=== PATIENT | female | born 1985 | race Caucasian/White ===

== ENCOUNTER 2017-02-21 10:51 | Emergency (ER) | payer MEDICAID ==
[~2017-02-21 10:51] MED LIST: CHLO.12%30 SSP; IBUP-232 PO; PENI250T59 PO
[2017-02-21 10:53] VITALS: BP 147/80; PULSE 100; RESP 15; TEMP 98.8; O2SAT 100
--- NOTE | 2017-02-21 12:28 | PD ---
HPI Chief Complaint abdominal pain Date Seen: Feb 21, 2017 Travel History International Travel<30 Days: No Contact w/Intl Traveler<30Days: No Known Affected Area: No History of Present Illness HPI 31 up @ 24w0d, care with Dr. Felder. Uncomplicated per patient. No records available at this time. Patient presents with c/o sharp lower abdominal pain this morning. +FM, no VB, UC or, LOF or abnormal discharge. She had intercourse last evening. No spotting or concerns post-coital. She reports pain is similar to a UTI she had earlier in the . The pain is sharp and constant. She did eat a doughnut this morning for breakfast. She denies vomiting, or diarrhea. No other associated symptoms. History Past Medical History Narrative Medical Kidney stone Obstetric History Obstetric History x 3 Past Surgical History Narrative Surgical Renal stent Social History Alcohol Use: No Tobacco Use: No Substance Abuse: No Allergies-Medications (Allergen,Severity, Reaction): Coded Allergies: No Known Allergies (Verified , 06/23/15) Home Meds Active Scripts Ibuprofen (Motrin) 600 Mg Tab, 600 MG PO Q6 Y for PAIN, #20 TAB Prov:Yessy Wise MD 06/23/15 Penicillin V Potassium (Penicillin Vk) 250 Mg Tab, 500 MG PO Q12HR for 7 Days, TAB Prov:Yessy Wise MD 06/23/15 Chlorhexidine Gluconate (Peridex Oral Rinse) 0.12 % Mica, 15 ML SSP Q6HR, #1 ML Prov:Yessy Wise MD 06/23/15 Review of Systems General / Constitutional: No: Fever, Chills Eyes: No: Blurred Vision, Visual changes HENT: No: Headaches, Lightheadedness Cardiovascular: No: Chest Pain or Discomfort, Palpitations Respiratory: No: Cough, Short of Breath Gastrointestinal: Nausea (after ate a doughnut for breastfest only), Abdominal Pain (per hpi), No: Vomiting, Diarrhea, Changes in Bowel Habits, Loss of Appetite Genitourinary: No: Urgency, Frequency, Dysuria, Incontinence, Discharge, Vaginal Bleeding Musculoskeletal: No: Limited ROM, Weakness, Edema Skin: No Rash, No Itching, No Lesions Neurologic: No: Dizziness, Syncope, Focal Abnormalities, Coordination Problem Physical Exam Vital Signs Date Time Temp Pulse Resp B/P (MAP) Pulse Ox O2 Delivery O2 Flow Rate FiO2 02/21/17 11:30 1145 98.3 69 20 100/67 Narrative GENERAL: Well-nourished, well-developed patient. NAD SKIN: Warm and dry. HEAD: Normocephalic and atraumatic. EYES: No scleral icterus. No injection or drainage. ENT: No nasal drainage noted. Mucous membranes pink. Airway patent. NECK: Supple, trachea midline. No JVD. CARDIOVASCULAR: Regular rate VSS RESPIRATORY: No accessory muscle use. ABDOMEN/GI: Abdomen soft, mild tenderness over bladder only, no rebound, no guarding Gravid No RUQ or epigastric tenderness TOCO: no regular UC FHT's: Category: reasurring for gestational age Baseline: 145 EXTREMITIES: No cyanosis or edema. BACK: Nontender without obvious deformity. No CVA tenderness. NEUROLOGICAL: Awake and alert. Motor and sensory grossly within normal limits. Normal speech. Data Data Vital Signs Reviewed: Yes Orders Orders Vital Signs (Adult) .ON ADMISSION (02/21/17 11:42) ^ Labor Status (02/21/17 11:42) Urinalysis - C+S If Indicated (02/21/17 11:42) Labs Laboratory Tests Test 02/21/17 11:40 Urine Color YELLOW Urine Turbidity HAZY Urine pH 6.5 Urine Specific [place] 1.016 Urine Protein 300 mg/dL Urine Glucose (UA) NEG mg/dL Urine Ketones NEG mg/dL Urine Occult Blood LARGE Urine Nitrite NEG Urine Bilirubin NEG Urine Urobilinogen LESS THAN 2.0 MG/DL Urine Leukocyte Esterase LARGE Urine RBC 125 /hpf Urine WBC /hpf Urine WBC Clumps MANY Urine Squamous Epithelial Cells 1 /hpf Urine Transitional Epithelial Cells 1 /hpf Urine Renal Epithelial Cells <1 /hpf Urine Bacteria OCC /hpf Urine Mucus FEW /lpf Microscopic Urinalysis Comment CULTURE INDICATED MDM Narrative Course / MDM 24 weeks FHT reassuring for gestational age TOCO with mild uterine irritability, no regular UC noted or palpated. UA - c/w UTI No evidence of dehydration. Tolerating fluids. Rx Macrobid Tylenol PRN Second UTI this , patient to f/u in office in 48-72 hours for culture result. continue oral hydration Oral hydration. Diagnosis Diagnosis: Primary Impression: UTI (urinary tract infection) in in second trimester Additional Impressions: Abdominal pain during in second trimester 24 weeks gestation of Disposition: 01 DISCHARGE HOME Condition: Good Cristina Tan MD Feb 21, 2017 12:28
[2017-02-21 12:54] LABS: BACTERIA, URINE OCC /hpf; BLOOD, URINE LARGE (NEG); COMMENT (UR) CULTURE INDICATED; CULTURE IF INDICATED CULTURE INDICATED; GLUCOSE,URINE NEG (NEG); KETONE, URINE NEG (NEG); MUCUS URINE FEW /lpf (OCC); NITRITE,URINE NEG (NEG); PH, URINE 6.5 (5.0-8.5); RENAL EPITHELIAL CELLS <1 /hpf; SQUAMOUS EPITHELIAL CELL URINE 1 /hpf (0-5); TRANSITIONAL EPI CELLS, URINE 1 /hpf; URINE COLOR YELLOW (YELLW/STRAW)
[2017-02-21] MEDS ORDERED: MACR100C2 PO (13:06)
== END 2017-02-21 13:15 | disposition home or self-care (01) ==
LOC: HOBED 10:51
DX: O23.42 Unspecified infection of urinary tract in pregnancy, second trimester (principal); B96.20 Unspecified Escherichia coli [E. coli] as the cause of diseases classified elsewhere; O26.892 Other specified pregnancy related conditions, second trimester; R10.30 Lower abdominal pain, unspecified; Z3A.24 24 weeks gestation of pregnancy
CPT/HCPCS: 81001; 87077; 87086; 87186; 99283

== ENCOUNTER 2017-05-20 19:41 | Emergency (ER) | payer MEDICAID, OTHER ==
[~2017-05-20 19:41] MED LIST changes: +MACR100C2 PO
--- NOTE | 2017-05-20 20:36 | PD ---
HPI Chief Complaint ctx Date Seen: May 20, 2017 Time Seen: 20:32 Travel History International Travel<30 Days: No Contact w/Intl Traveler<30Days: No Known Affected Area: No History of Present Illness HPI Pt is a 31y/o @ 38.4wks. She has PNC with [facility]. She presents today with c/o ctx which have been for several days but worse today at 5:30pm. She denies LOF/VB. +FM. She reports that she was 3cm dilated this week in the office. Weeks Gestation: 38 Para: 3 : 4 History Past Medical History Medical History: Denies Significant Hx Obstetric History Obstetric History x3 GDM with G1 only Past Surgical History Narrative Surgical kidney stent Family History Family History: Negative Social History Alcohol Use: No Tobacco Use: No Substance Abuse: No Allergies-Medications (Allergen,Severity, Reaction): Coded Allergies: No Known Allergies (Verified , 06/23/15) Home Meds Active Scripts Nitrofurantoin Monohydrate Macrocrystals (Macrobid) 100 Mg Cap, 100 MG PO BID for Infection for 7 Days, #14 CAP 0 Refills Prov:Cristina Tan MD 02/21/17 Ibuprofen (Motrin) 600 Mg Tab, 600 MG PO Q6 Y for PAIN, #20 TAB Prov:Yessy Wise MD 06/23/15 Penicillin V Potassium (Penicillin Vk) 250 Mg Tab, 500 MG PO Q12HR for 7 Days, TAB Prov:Yessy Wise MD 06/23/15 Chlorhexidine Gluconate (Peridex Oral Rinse) 0.12 % Mica, 15 ML SSP Q6HR, #1 ML Prov:Yessy Wise MD 06/23/15 Review of Systems Except as stated in HPI: all other systems reviewed are Neg Physical Exam Narrative General: well developed, well nourished, no acute distress HEENT: normocephalic atraumatic, extraocular movements intact, neck supple Abdomen: soft, gravid, nontender, nondistended Uterus: fundus term Extremities: full range of motion Skin: normal coloration, no rashes, no suspicious skin lesions noted Neurologic: cranial nerves 2-12 grossly intact, normal muscle tone, normal gait Psychiatric: normal mood and affect, appropriate FHTs: 135, +accels, no decels, moderate variability, reactive [place]: irritable Cvx: 3/thick/-2, posterior Data Data Vital Signs Reviewed: Yes Orders Orders Vital Signs (Adult) .ON ADMISSION (05/20/17 20:30) ^ Labor Status (05/20/17 20:30) Urinalysis - C+S If Indicated (05/20/17 20:30) ^ Non Stress Test (05/20/17 20:30) Ed Discharge Order (05/20/17 20:30) MDM Plan 31y/o @ 38.4wks with ctx. -- cvx 3cm (unchanged from office check this week) -- FHTs cat 1 -- toco irritable -- UA sent Dispo: stable for d/c home with precautions; has f/u [facility] on Tuesday Diagnosis Diagnosis: Primary Impression: 38 weeks gestation of Additional Impression: Uterine contractions during Ana Singh MD May 20, 2017 20:36
== END 2017-05-20 20:44 | disposition home or self-care (01) ==
LOC: HOBED 19:41
DX: O47.1 False labor at or after 37 completed weeks of gestation (principal); Z3A.38 38 weeks gestation of pregnancy
CPT/HCPCS: 99283

== ENCOUNTER 2017-05-28 20:36 | Inpatient (IN) | payer MEDICAID ==
[~2017-05-28] VITALS: Ht 157.5 cm; Wt 51.0 kg
[2017-05-28] MEDS: LACTATED RINGER'S 1000 ML INJ 1,000 ML IV SCH (21:33)
[2017-05-28] MEDS ORDERED: LACTATED RINGER'S 1000 ML INJ 1,000 ML IV PRN (21:33)
--- NOTE | 2017-05-28 21:40 | PD ---
HPI Chief Complaint LOF Date Seen: May 28, 2017 Time Seen: 21:36 Travel History International Travel<30 Days: No Contact w/Intl Traveler<30Days: No Known Affected Area: No History of Present Illness HPI Pt is a 32y/o @ 39.5wks. She has PNC with Dr. Felder. She presents this evening for LOF 1hr ago. Occasional ctx. No VB. +FM. No complications this . GBS neg. Weeks Gestation: 39 Para: 3 : 4 History Past Medical History Medical History: Denies Significant Hx Obstetric History Obstetric History x3 Past Surgical History Surgical History: No Previous Surgery Family History Family History: Negative Social History Alcohol Use: No Tobacco Use: No Substance Abuse: No Allergies-Medications (Allergen,Severity, Reaction): Coded Allergies: No Known Allergies (Verified , 06/23/15) Home Meds Active Scripts Nitrofurantoin Monohydrate Macrocrystals (Macrobid) 100 Mg Cap, 100 MG PO BID for Infection for 7 Days, #14 CAP 0 Refills Prov:Cristina Tan MD 02/21/17 Ibuprofen (Motrin) 600 Mg Tab, 600 MG PO Q6 Y for PAIN, #20 TAB Prov:Yessy Wise MD 06/23/15 Penicillin V Potassium (Penicillin Vk) 250 Mg Tab, 500 MG PO Q12HR for 7 Days, TAB Prov:Yessy Wise MD 06/23/15 Chlorhexidine Gluconate (Peridex Oral Rinse) 0.12 % Mica, 15 ML SSP Q6HR, #1 ML Prov:Yessy Wise MD 06/23/15 Review of Systems Except as stated in HPI: all other systems reviewed are Neg Physical Exam Narrative General: well developed, well nourished, no acute distress HEENT: normocephalic atraumatic, extraocular movements intact, neck supple Abdomen: soft, gravid, nontender, nondistended Uterus: fundus term Extremities: full range of motion Skin: normal coloration, no rashes, no suspicious skin lesions noted Neurologic: cranial nerves 2-12 grossly intact, normal muscle tone, normal gait Psychiatric: normal mood and affect, appropriate FHTs: 135, +accels, no decels, moderate variability, reactive [place]: ctx q4m Cvx: 3/50/-3 (unchanged from recent check) Data Data Vital Signs Reviewed: Yes Orders Orders Vital Signs (Adult) .ON ADMISSION (05/28/17 21:33) ^ Labor Status (05/28/17 21:33) ^ Non Stress Test (05/28/17 21:33) Pamg-1 Test .ONCE (05/28/17 21:33) Admit To Inpatient (05/28/17 ) Vital Signs (Adult) .Per protocol (05/28/17 21:33) Heart (05/28/17 21:33) Amnioinfusion (05/28/17 21:33) Urinary Catheter Management .ONCE (05/28/17 21:33) Diet Liquid (05/29/17 Breakfast) Lactated Ringer's 1000 Ml Inj (Lr 1000 M (05/28/17 21:33) Lactated Ringer's 1000 Ml Inj (Lr 1000 M (05/28/17 21:33) Sodium Chlorid 0.9% 500 Ml Inj (Ns 500 M (05/28/17 21:45) Sodium Chlor 0.9% 1000 Ml Inj (Ns 1000 M (05/28/17 21:53) Lidocaine 1% Inj (50 Ml) (Xylocaine 1% I (05/28/17 21:45) Citric Acid-Sodium Citrate Liq (Bicitra (05/28/17 21:45) Ondansetron Inj (Zofran Inj) (05/28/17 21:45) Fentanyl Inj (Fentanyl Inj) (05/28/17 21:45) Fentanyl Inj (Fentanyl Inj) (05/28/17 21:45) Complete Blood Count With Diff (05/28/17 21:33) Hold Clot (05/28/17 21:33) Abo/Rh Blood Type (05/28/17 21:33) Urinalysis - C+S If Indicated (05/28/17 21:33) Drug Screen, Random Urine (05/28/17 21:33) Resp Oxygen Non Rebreathe Mask (05/28/17 ) ^ Epidural / Intrathecal Infus (05/28/17 21:33) Oxytocin 30 Units-500ml Premix (Pitocin (05/28/17 21:45) Lidocaine 1% Inj (50 Ml) (Xylocaine 1% I (05/28/17 21:45) Light Mineral Oil (Muri-Lube Oil) (05/28/17 21:45) Inpatient Certification (05/28/17 ) ^ Non Stress Test (05/28/17 21:33) Response To Medication .Post New Med Administration, Reaction (05/28/17 21:33) ^ Discontinue Medication (05/28/17 21:33) Oxytocin Drip (2-2-30) (05/28/17 21:45) Group B Strep: Negative MDM Plan 32y/o with PROM. 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 He will assume care of the pt. Courtesy orders placed. Diagnosis Diagnosis: Primary Impression: 39 weeks gestation of Additional Impression: PROM (premature rupture of membranes) Ana Singh MD May 28, 2017 21:40
[2017-05-28] MEDS ORDERED: OXYTOCIN 30 UNITS-500ML PREMIX 500 ML IV SCH (21:45)
[2017-05-28] MEDS ORDERED: LIDOCAINE HCL 1% 50 ML VIAL I-DERMAL PRN (21:45)
[2017-05-28] MEDS ORDERED: SODIUM CHLORID 0.9% 500 ML INJ 500 ML IV PRN (21:45)
[2017-05-28] MEDS ORDERED: LIDOCAINE HCL 1% 50 ML VIAL INFIL PRN (21:45)
[2017-05-28] MEDS ORDERED: ONDANSETRON HCL 4 MG/2 ML VIAL IV PUSH PRN (21:45)
[2017-05-28] MEDS ORDERED: OXYTOCIN 30 UNITS-500ML PREMIX 500 ML IV ONE (21:45)
[2017-05-28] MEDS ORDERED: MINERAL OIL 10 ML VIAL TOPICAL PRN (21:45)
[2017-05-28] MEDS ORDERED: CITRIC ACID-SODIUM CITRATE LIQ 30 ML UDC PO SCH (21:45)
[2017-05-28 21:52] LABS: AUTOMATED NEUTROPHIL # 9.2 TH/MM3 (1.8-7.7); BASOPHIL % 0.4 % (0.0-2.0); EOSINOPHIL # 0.1 TH/MM3 (0-0.4); EOSINOPHIL % 0.7 % (0.0-4.0); HEMATOCRIT 37.8 % (35.0-46.0); HEMOGLOBIN 12.6 GM/DL (11.6-15.3); LYMPHOCYTE # 1.5 TH/MM3 (1.0-4.8); MEAN CELL VOLUME 86.6 FL (80.0-100.0); MEAN CORPUSCULAR HEMOGLOBIN 28.8 PG (27.0-34.0); MEAN CORPUSCULAR HGB CONC 33.3 % (32.0-36.0); MEAN PLATELET VOLUME 7.3 FL (7.0-11.0); MONO % 7.5 % (0.0-8.0); MONOCYTE # 0.9 TH/MM3 (0-0.9); NEUT % 78.4 % (16.0-70.0); PLATELET COUNT 230 TH/MM3 (150-450); RED BLOOD COUNT 4.36 MIL/MM3 (4.00-5.30); RED CELL DISTRIBUTION WIDTH 15.6 % (11.6-17.2); WHITE BLOOD COUNT 11.8 TH/MM3 (4.0-11.0)
[2017-05-28] MEDS ORDERED: SODIUM CHLOR 0.9% 1000 ML INJ 1,000 ML IV PRN (21:53)
[2017-05-28] MEDS ORDERED: PREN1TAB45 PO (22:08)
[2017-05-28 22:34] VITALS: BP 112/73; PULSE 64
[2017-05-28 22:38] LABS: BACTERIA, URINE FEW /hpf; BILIRUBIN, URINE NEG (NEG); BLOOD, URINE SMALL (NEG); GLUCOSE,URINE NEG (NEG); KETONE, URINE NEG (NEG); MUCUS URINE FEW /lpf (OCC); NITRITE,URINE NEG (NEG); SQUAMOUS EPITHELIAL CELL URINE 10 /hpf (0-5); URINE COLOR LIGHT-YELLOW (YELLW/STRAW); URINE LEUKOCYTE ESTERASE LARGE (NEG)
[2017-05-28 23:00] VITALS: BP 117/79; PULSE 69
[2017-05-28 23:30] VITALS: BP 110/63; PULSE 67
[2017-05-29] VITALS (55 sets, daily range): BP systolic 88–156; BP diastolic 48–106; PULSE 65–148; RESP 16–20; TEMP 97.6–99; O2SAT 0–98
[2017-05-29] MEDS ORDERED: ePHEDrine/NS 25 MG/5 ML SYRINGE ONE (00:37)
[2017-05-29] MEDS ORDERED: ACETAMINOPHEN 325 MG TAB PO SCH (06:30)
[2017-05-29] MEDS ORDERED: fentaNYL 2MCG-BUPIV 0.125% INJ 100 ML ONE (07:03)
[2017-05-29] MEDS: LACTATED RINGER'S 1000 ML INJ 1,000 ML IV SCH (07:07)
[2017-05-29] MEDS ORDERED: NO SYSTEM NARCOTICS PRN (07:45)
[2017-05-29] MEDS ORDERED: fentaNYL 2MCG-BUPIV 0.125% 100 ML EPIDURAL SCH (07:45)
[2017-05-29] MEDS ORDERED: ePHEDrine/NS 25 MG/5 ML SYRINGE IV PUSH PRN (07:45)
[2017-05-29] MEDS ORDERED: DO NOT ADMINISTER ANTICOAGULANTS PRN (07:45)
--- NOTE | 2017-05-29 10:13 | PD.OB.DELI ---
Weeks gestation: 39 Gest age assessed date: May 29, 2017 Pt started active labor?: Yes Active labor start date: May 28, 2017 Medical induction of labor?: No Artificial rupture of membrane: Yes Artificial ROM date: May 29, 2017 Anesthesia: Epidural Episiotomy: None Vaginal Delivery: Normal Presentation: Occiput anterior Nuchal Cord: None Delayed cord clamping (45 sec): Yes : Male Delivery date: May 29, 2017 Delivery time: 09:53 One Minute : 9 Five Minute : 9 Weight: 6/3 Placenta: Spontaneous delivery, Intact, 3 vessel cord Estimated blood loss: 300cc Additional Information Nice delivery of Jd after one hour of pushing. Placenta spontaneous but piece went back in..Uterus explored and small membranes removed. No significant lacerations. Baby is doing great. Jairo Jernigan MD May 29, 2017 10:13
[2017-05-29] MEDS ORDERED: ACETAMINOPHEN 325 MG TAB PO PRN (10:15)
[2017-05-29] MEDS ORDERED: ONDANSETRON ODT 4 MG TAB PO PRN (10:15)
[2017-05-29] MEDS ORDERED: WITCH HAZEL 50%/GLYCERIN 12.5% 40 PAD JAR TOPICAL PRN (10:15)
[2017-05-29] MEDS ORDERED: SODIUM CHLORIDE 0.9% FLUSH 10 ML FLUSH IV FLUSH PRN (10:15)
[2017-05-29] MEDS ORDERED: OXYTOCIN 30 UNITS-500ML PREMIX 500 ML IV SCH (10:15)
[2017-05-29] MEDS ORDERED: ZOLPIDEM TARTRATE 5 MG TAB PO PRN (10:15)
[2017-05-29] MEDS ORDERED: OXYTOCIN 30 UNITS-500ML PREMIX 500 ML IV ONE (10:15)
[2017-05-29] MEDS ORDERED: ALUMINUM/MAGNESIUM/SIMETH 30 ML CUP PO PRN (10:15)
[2017-05-29] MEDS ORDERED: BENZOCAINE 20% TOPICAL SPRAY 60 ML CAN TOPICAL PRN (10:15)
[2017-05-29] MEDS ORDERED: DOCUSATE SODIUM 50 MG/SENNA 8.6 MG TAB PO PRN (10:15)
[2017-05-29] MEDS: IBUPROFEN 800 MG TAB PO PRN ×2 (10:57→18:17)
[2017-05-29] MEDS ORDERED: IBUP1TAB7 PO (13:53)
--- NOTE | 2017-05-29 13:53 | HHI.DCPOC ---
Discharge Care Plan Diagnosis: (1) Vaginal delivery Report Symptoms to Your Doctor -Temperature above 100.5 degrees -Redness, of incision or excessive or foul smelling drainage -Unusual pain or calf pain -Increased vaginal bleeding -Painful or difficulty urinating -Feelings of extreme sadness or anxiety after 2 weeks Goals to Promote Your Health * To prevent worsening of your condition and complications * To maintain your health at the optimal level Directions to Meet Your Goals Take your medications as prescribed Follow your dietary instruction Follow activity as directed Ensure plenty of rest for recovery Drink fluids for hydration Keep your appointments as scheduled Take your immunizations and boosters as scheduled If your symptoms worsen call your PCP, if no PCP go to Urgent Care Center or Emergency Room Smoking is Dangerous to Your Health. Avoid second hand smoke Call the 24-hour crisis hotline for domestic abuse at Jairo Jernigan MD May 29, 2017 13:53
[2017-05-29] MEDS: oxyCODONE/ACETAMINOPHEN 5 MG/325 MG TAB PO PRN ×2 (15:17→23:14)
[2017-05-29] MEDS ORDERED: MEASLES, MUMPS, RUBELLA VACCINE 0.5 ML VIAL SQ ONE (16:00)
[2017-05-29] MEDS ORDERED: DIPHTH/TETANUS/ACEL PERTUSSIS (BOOSTER) 0.5 ML VIAL/PFS IM ONE (16:00)
[2017-05-29] MEDS ORDERED: SODIUM CHLORIDE 0.9% FLUSH 10 ML FLUSH IV FLUSH SCH (21:00)
[2017-05-30] MEDS: IBUPROFEN 800 MG TAB PO PRN (08:29)
[2017-05-30 08:30] VITALS: BP 91/68; PULSE 62; RESP 17; TEMP 98.1
--- NOTE | 2017-05-30 08:55 | HHI.OB ---
Subjective Post Day: 1 Remarks PPD#1; doing ok, considering discharge home today Objective Vitals/I&O Vital Signs Date Time Temp Pulse Resp B/P (MAP) Pulse Ox O2 Delivery O2 Flow Rate FiO2 05/29/17 20:30 72 99/69 (79) 05/29/17 20:30 98.7 16 98 05/29/17 16:00 97.6 73 20 113/73 (86) 0 05/29/17 11:15 88 120/70 (87) 05/29/17 11:15 17 05/29/17 11:00 100 109/68 (82) 05/29/17 10:59 17 05/29/17 10:45 18 05/29/17 10:45 82 109/95 (100) 05/29/17 10:30 98 126/70 (88) 05/29/17 10:30 19 05/29/17 10:15 19 05/29/17 10:15 98 110/72 (85) 05/29/17 10:03 112 126/69 (88) 05/29/17 10:00 120 138/76 (96) 05/29/17 09:30 124 130/106 (114) 05/29/17 09:00 121 132/76 (94) Objective Remarks GENERAL: Well-nourished, well-developed patient. CARDIOVASCULAR: Regular rate and rhythm without murmurs, gallops, or rubs. RESPIRATORY: Breath sounds equal bilaterally. No accessory muscle use. ABDOMEN/GI: Abdomen soft, non-tender. Fundus: Firm, non-tender at umbilicus. GENITOURINARY: Light to moderate bleeding. EXTREMITIES: No cyanosis or edema, non-tender, without signs of DVT. Medications and IVs Current Medications Medications (Trade) Dose Ordered Sig/Joel Route Start Time Stop Time Status Last Admin (NS Flush) 2 ml BID IV FLUSH 05/29/17 21:00 (NS Flush) 2 ml UNSCH PRN IV FLUSH 05/29/17 10:15 (Tylenol) 650 mg Q4H PRN PO 05/29/17 10:15 (Motrin) 800 mg Q8H PRN PO 05/29/17 10:15 05/30/17 08:29 (Americaine 20% Top Spr) 1 spray Q4H PRN TOPICAL 05/29/17 10:15 05/30/17 08:30 (Tucks Pads) 1 applic QID PRN TOPICAL 05/29/17 10:15 05/30/17 08:29 (Theresa-Colace) 2 tab Q12H PRN PO 05/29/17 10:15 (Ambien) 5 mg HS PRN PO 05/29/17 10:15 (Mag-Al Plus Susp Liq) 15 ml Q8H PRN PO 05/29/17 10:15 (Zofran Odt) 4 mg Q6H PRN PO 05/29/17 10:15 (Percocet 5-325 Mg) 1 tab Q4H PRN PO 05/29/17 15:00 05/29/17 23:14 Assessment/Plan Assessment and Plan PPD#1, stable, plan d/c home if infant cleared to go home Discharge Planning routine Attending Attestation seen by Jhony Rivera MD May 30, 2017 08:55
[2017-05-30] MEDS: oxyCODONE/ACETAMINOPHEN 5 MG/325 MG TAB PO PRN ×2 (09:00→14:08)
[2017-05-30 16:30] VITALS: RESP 17
== END 2017-05-30 16:45 | disposition home or self-care (01) | DRG 775 ==
LOC: HOBED 20:36 → H2EB 22:04 → H1EA 05-29 11:37
PROVIDERS: ADMIT Obstetrics & Gynecology; ATTEND Obstetrics & Gynecology
PROC: 10E0XZZ Delivery of Products of Conception, External Approach (ICD-10-PCS; principal; 2017-05-29)
DX: O42.92 Full-term premature rupture of membranes, unspecified as to length of time between rupture and onset of labor (principal); Z37.0 Single live birth; Z3A.39 39 weeks gestation of pregnancy
CPT/HCPCS: 59025; 80307; 81001; 84112; 85025; 87086; 90715; J2590; J7120